=== PATIENT | female | born 1960 | race Hispanic/Latino ===

== ENCOUNTER → 2024-08-07 | Outpatient (REF) | payer OTHER | LOC: US 08:44 | PROVIDERS: ATTEND Nurse Practitioner Family | DX: R10.9 Unspecified abdominal pain (principal) | CPT/HCPCS: 76700; 76856 ==

== ENCOUNTER → 2024-08-14 | Day surgery (SDC) | payer OTHER ==
[~2024-08-14] MED LIST: ALENDRONATE SOD70 MG PO; CRESTOR40 MG PO; LIDOCAINE HCL 2% LOCAL INJ 5 ML SDV VIAL INJ ONE; LOSARTAN POTASS25 MG PO; METFORMIN HCL500 MG PO; MONTELUKAST SOD10 MG PO; MULTI-VITAMIN1 EACH PO; PROPOFOL IV EMULSION 50 ML IV ONE; VITAMIN D3 COM1 EACH PO
[2024-08-14] MEDS: LACTATED RINGER'S 1,000 ML ONE (12:04)
[2024-08-14 15:25] VITALS: BP 117/66; PULSE 72; RESP 17; TEMP 97.4; O2SAT 97
== END | disposition home or self-care (01) ==
LOC: OR 11:55
PROVIDERS: ATTEND Internal Medicine Gastroenterology
DX: Z12.11 Encounter for screening for malignant neoplasm of colon (principal); D12.2 Benign neoplasm of ascending colon; D12.4 Benign neoplasm of descending colon; K29.70 Gastritis, unspecified, without bleeding; K31.89 Other diseases of stomach and duodenum; K21.9 Gastro-esophageal reflux disease without esophagitis; K44.9 Diaphragmatic hernia without obstruction or gangrene; K59.00 Constipation, unspecified; K63.89 Other specified diseases of intestine; K64.8 Other hemorrhoids; I10 Essential (primary) hypertension; E78.5 Hyperlipidemia, unspecified; J45.909 Unspecified asthma, uncomplicated; Z88.2 Allergy status to sulfonamides; Z01.810 Encounter for preprocedural cardiovascular examination; Z79.84 Long term (current) use of oral hypoglycemic drugs; Z79.899 Other long term (current) drug therapy; Z87.898 Personal history of other specified conditions
CPT/HCPCS: 43239; 45378; 45384; 93005; J2003